=== PATIENT | male | born 1980 | race Caucasian/White ===

== ENCOUNTER 2023-05-25 11:11 | Emergency (ER) | payer OTHER ==
[~2023-05-25] VITALS: Ht 188 cm; Wt 109.1 kg
[2023-05-25] MEDS: ketorolac trometh inj. 60 MG/2 ML VIAL IM ONE (13:44)
[2023-05-25] MEDS ORDERED: NAPR-56 PO (13:47)
[2023-05-25 13:53] VITALS: BP 118/77; PULSE 58; RESP 16; TEMP 97.9; O2SAT 100
== END 2023-05-25 13:57 | disposition home or self-care (01) ==
LOC: ER 11:11
DX: S83.8X2A Sprain of other specified parts of left knee, initial encounter (principal); X50.1XXA Overexertion from prolonged static or awkward postures, initial encounter; Y93.89 Activity, other specified; Y92.89 Other specified places as the place of occurrence of the external cause; Y99.8 Other external cause status
CPT/HCPCS: 29505; 96372; 99283; J1885